=== PATIENT | male | born 1985 | race Caucasian/White ===

== ENCOUNTER 2017-01-31 13:31 | Emergency (ER) | payer OTHER ==
[~2017-01-31] VITALS: Ht 167.6 cm; Wt 64.0 kg
[2017-01-31 13:37] VITALS: BP 145/91; PULSE 116; RESP 18; O2SAT 96
--- NOTE | 2017-01-31 13:59 | ED.REPORT ---
HPI-General Illness Date of Service Jan 31, 2017 ED Provider: Onesimo Fisher MD A 31 year old male with a history of polysubstance abuse and bipolar disorder presents to the ED seeking a referral to rehab. Patient was found walking around intoxicated prior to arrival. He has reportedly been using meth for the past 5 days and drank a bottle of whiskey this morning. Patient states that he feels anxious and would like to be prescribed something to calm him down. Patient is a poor historian. Nursing Notes Stated Complaint: DETOX Chief Complaint: Substance Abuse Nursing Notes Reviewed: Yes General Time Seen by MD: 13:56 Chief Complaint Other (Seeking Rehab) Hx Obtained From: Patient Arrived By: Walk-in Sudden in Onset?: No Onset Occurred: 5 days ago Symptom Duration: 5 days Additional Notes: Anxious Pertinent Negative: Pt denies other symptoms Recent Healthcare: No recent doctor visit, No recent hospitalization Past Medical History Past Medical History Bipolar disorder Past Surgical History None reported. Smoking History Smoker Current Status UNK Social History Hx of polysubstance abuse Alcohol Use: >5 per day Drug Use: Meth, THC Other Social History: Local resident Ambulatory Status Independent Review of Systems ROS limited due to pt cooperation Full Review of Systems Psychiatric: Reports: Agitation, Anxiety Complete sys rev & neg: except as marked. Physical Exam Exam limited due to patient cooperation Vital Signs Vital Signs Date Time Temp Pulse Resp B/P Pulse Ox O2 Delivery O2 Flow Rate FiO2 01/31/17 20:52 36.0 91 18 127/78 100 Room Air 01/31/17 17:00 91 17 96 01/31/17 13:37 37.1 116 18 145/91 96 Room Air Initial VS: Reviewed General/Constitutional: Awake, Alert Behavior: Positive: Agitated Head / Eyes: Atraumatic, Normocephalic Respiratory / Chest: Atraumatic, No respiratory distress Interpretation & Diagnostics Lab Results Interpretation Result Diagram: 01/31/17 1448 01/31/17 1448 Test 01/31/17 14:45 01/31/17 14:48 Hold [place] Top Tube Received (Received) White Blood Count 11.3th/mm3 (3.8-10.1) Red Blood Count 4.43mil/mm3 (4.40-5.80) Hemoglobin 14.6g/dL (13.8-17.2) Hematocrit 40.6% (41.0-50.0) Mean Corpuscular Volume 91.6fL (81-100) Mean Corpuscular Hemoglobin 33.0pg (27.0-35.0) Mean Corpuscular Hemoglobin Concent 36.0% (32.0-37.0) Red Cell Distribution Width 12.5% (12.3-15.4) Platelet Count 259bil/L (150-400) Neutrophils (%) (Auto) 78.5% (40-74) Lymphocytes (%) (Auto) 12.5% (14-46) Monocytes (%) (Auto) 8.1% (4-12) Eosinophils (%) (Auto) 0.4% (0-5) Basophils (%) (Auto) 0.3% (0-3) Sodium Level 134mEq/L (134-144) Potassium Level 3.3mEq/L (3.5-5.2) Chloride Level 93mEq/L (97-108) Carbon Dioxide Level 13mmol/L (18-29) Blood Urea Nitrogen 27mg/dL (6-20) Creatinine 0.96mg/dL (0.76-1.27) Estimat Glomerular Filtration Rate 97mL/min (>59) Glucose Level 142mg/dL (60-99) Calcium Level 8.7mg/dL (8.5-10.1) Total Bilirubin 1.0mg/dL (0.0-1.2) Aspartate Amino Transf (AST/SGOT) 55U/L (0-50) Alanine Aminotransferase (ALT/SGPT) 127U/L (0-44) Alkaline Phosphatase 61U/L (25-150) Total Protein 7.2g/dL (6.4-8.4) Albumin 4.6g/dL (3.4-5.0) Thyroid Stimulating Hormone (TSH) 1.170uIU/mL (0.450-4.500) Alcohol, Quantitative 72mg/dL (0-10) Re-Eval/Medical Decision Med Decision/Clinical Course I assumed care of this patient at 1500 At 1640 patients labs: Borderline leukocytosis,otherwise normal Mildly elevated transaminase Mildly hypokalemic with potassium of 3.3 BUN is elevated TSH within normal limits Alcohol is 72 In summary, this is a 31-year-old male with a history of bipolar disorder and polysubstance abuse. Upon arrival he admitted to methamphetamine and alcohol abuse. He was quite agitated and aggressive towards staff and was given Haldol and Ativan. She slept throughout the duration of my shift and near the end of my shift he stated to nursing staff that he wanted to be discharged. I evaluated the patient and there was no evidence of significant trauma to the face or scalp. He did not demonstrate clinical intoxication and stated that he no longer desired to go to rehabilitation. He stated that he would go back to his mother's house. He admitted to smoking copious amounts of methamphetamine and being awake for 4-5 days as a result thereof. He denied any suicidal or homicidal ideation. He ate a burger and drink a couple glasses of water. At this time, the patient has decisional capacity. While I highly recommended that he go to detox he is able to make his own decisions at this time. He has been seen and evaluated by our psych social worker and provided with resources. Follow-up and return precautions were reviewed in detail and he is discharged in stable condition. Time of Eval: 20:56 Re-Evaluation/Progress Note: Pt rechecked. Pt states that he wants to leave. He denies SI. Discharge & Departure Shift Change Sign-Out Patient Care Transferred: Yes Discussed Complaint(s): Yes Primary Impression: Agitation Additional Impressions: Methamphetamine abuse Alcohol abuse Disposition: Home Discharge Condition All VS Reviewed: Yes Condition: Improved Additional Instructions: You were seen here today for alcohol and methamphetamine abuse. We recommend that you do not abuse meth or alcohol, these may have serious medical implications. Follow-up with the resources provided by psych social worker. Return if you have suicidal thoughts or any medical concerns. Referrals: [facility] (PCP) [facility] Care Transferred to: Dr. Fisher Care Transferred at: 16:00 EDSupervising Provider for APC: Onesimo Fisher MD Attestation Portions of this note were transcribed by Chaz Cook. Dr. Oneyda Young personally performed the history, physical exam and medical decision-making; I reviewed and confirmed the accuracy of the information in the transcribed note. Signed by: Alex Ingram, 01/31/17 1500. Portions of this note were transcribed by Barbie Quinteros. Dr. Phillip Young personally performed the history, physical exam and medical decision-making; I reviewed and confirmed the accuracy of the information in the transcribed note. Signed by: Alex Castanon, 01/31/17 and 210. copies to: [facility] Yakov Call MD Jan 31, 2017 13:59 CHAZ COOK Jan 31, 2017 14:09 BARBIE QUINTEROS Jan 31, 2017 16:39 Onesimo Fisher MD Jan 31, 2017 21:04
[2017-01-31] MEDS ORDERED: Haloperidol 5 mg/mL Inj IM ONE (14:10)
[2017-01-31 15:06] LABS: BASOPHILS % (AUTO) 0.3 % (0-3); EOSINOPHILS % (AUTO) 0.4 % (0-5); MONOCYTES % (AUTO) 8.1 % (4-12); Mean Corpuscular Volume 91.6 fL (81-100); NEUTROPHILS % (AUTO) 78.5 % (40-74); Platelet Count 259 bil/L (150-400)
[2017-01-31 17:00] VITALS: PULSE 91; RESP 17; O2SAT 96
[2017-01-31 20:52] VITALS: BP 127/78; PULSE 91; RESP 18; O2SAT 100
[2017-01-31 21:55] VITALS: BP 127/78; PULSE 91; RESP 18; O2SAT 100
== END 2017-01-31 21:27 | disposition home or self-care (01) ==
LOC: SED 13:31
DX: R45.1 Restlessness and agitation (principal); F15.220 Other stimulant dependence with intoxication, uncomplicated; F10.220 Alcohol dependence with intoxication, uncomplicated; F19.20 Other psychoactive substance dependence, uncomplicated; F31.9 Bipolar disorder, unspecified; Y90.3 Blood alcohol level of 60-79 mg/100 ml
CPT/HCPCS: 36415; 80053; 84443; 85025; 96372; 99284; G0480; J1630; J2060

== ENCOUNTER 2017-05-04 00:32 | Emergency (ER) | payer OTHER ==
[~2017-05-04] VITALS: Ht 172.7 cm; Wt 72.7 kg
[2017-05-04 00:43] VITALS: BP 162/97; PULSE 108; RESP 20; O2SAT 98
--- NOTE | 2017-05-04 01:24 | ED.REPORT ---
HPI-Psychiatric Illness Date of Service May 04, 2017 ED Provider: Dr. Josh Gutierrez M.D. The patient is a 31 year old homeless male with a history of bipolar disorder, hepatitis C, and polysubstance abuse s/p suicide attempts who presents to the ED via Police requesting a mental health evaluation. Associated symptoms per the nursing note include nella, visual hallucinations, auditory hallucinations, and insomnia. The patient reportedly went to the Police station asking to be jailed for his drug use then repeatedly called 911 and requested to be taken to the ED. The patient admits to smoking methamphetamines two days ago as well as drinking alcohol and smoking marijuana tonight. He is concerned about his alcohol and methamphetamine use as well as his homelessness. The patient requests an Antabuse prescription. He is an agitated, rambling historian. Nursing Notes Stated Complaint: MANIC EPISODE Chief Complaint: Substance Abuse Nursing Notes Reviewed: Yes Allergies: Coded Allergies: No Known Allergies (Unverified , 05/04/17) Scheduled Disulfiram (Disulfiram) 250 Mg Tablet 250 MG PO DAILY General Time Seen by MD: 01:22 Chief Complaint Other (Mental Health Evaluation) Hx Obtained From: Patient Arrived By: Walk-in Onset Occurred: 1 - 4 hours ago Context of Onset: Illicit drug use, EtOH use Symptom Duration: Since onset Severity: Current: No pain currently Severity: Maximum: No pain Pertinent Negative: Relieved by nothing Related History: Reports: Bipolar disorder, Decreased sleep, Illicit drug use, Prior suicide attempt(s) Immunizations: Unknown Recent Healthcare: No recent doctor visit Risk-Psychiatric Illness Suicide Risk Stratification Suicide Risk Factors - Adult: : Alcohol use: Previous attempt: Substance abuse RF Statements: Risk factors reviewed Past Medical History Past Medical History Bipolar disorder Hepatitis C ADHD Suicide attempt Past Surgical History Hernia repair Smoking History Smoker Current Status UNK Social History Hx of polysubstance abuse Alcohol Use: >5 per day Drug Use: Meth, THC, Xanax, Other (Heroin) Other Social History: Local resident, Homeless Ambulatory Status Independent Review of Systems Unable to Obtain ROS Patient condition, Mental status Physical Exam Physical Exam Notes: Initial Vital Signs Vital Signs (First) Date Time Temp Pulse Resp B/P Pulse Ox O2 Delivery O2 Flow Rate FiO2 05/04/17 00:43 37.0 108 20 162/97 98 Room Air Initial VS: Reviewed, Vital signs abnormal Head / Eyes: Atraumatic, Normocephalic ENT: Conjunctiva normal, No scleral icterus Neck: Supple, Full range of motion Respiratory: Breath sounds normal, Clear to auscultation, No respiratory distress General/Constitutional: Awake, Alert Abnormal Mood/Affect: Positive: Pressured speech Abnormal Thinking / Perception: Positive: Flight of ideas PSYCHIATRIC: Delusional, hyperactive, hypervigilant Cardiovascular: Regular rhythm, Heart sounds NL Heart Rate / Rhythm: Positive: Tachycardia Skin: Warm, Dry Multiple well-healed scars to forearms consistent with self-cutting and suicide attempts Multiple small abrasions to right arm that do not look self-inflicted Interpretation & Diagnostics BREATHALYZER: 134 URINE DRUG SCREEN: + Benzodiazepines + Marijuana + Methamphetamine + Opiates + Amphetamines Otherwise Negative URINE DIPSTICK: 1.02 sp gravity 6 pH +30 Protein Trace Blood Otherwise Negative Lab Results Interpretation Result Diagram: 05/04/17 0305 05/04/17 0305 Test 05/04/17 01:45 05/04/17 03:00 05/04/17 03:05 Hold Urine Received (Received) Hold [place] Top Tube Received (Received) White Blood Count 12.5th/mm3 (3.8-10.1) Red Blood Count 4.34mil/mm3 (4.40-5.80) Hemoglobin 14.3g/dL (13.8-17.2) Hematocrit 41.2% (41.0-50.0) Mean Corpuscular Volume 94.9fL (81-100) Mean Corpuscular Hemoglobin 32.9pg (27.0-35.0) Mean Corpuscular Hemoglobin Concent 34.7% (32.0-37.0) Red Cell Distribution Width 12.7% (12.3-15.4) Platelet Count 267bil/L (150-400) Neutrophils (%) (Auto) 77.9% (40-74) Lymphocytes (%) (Auto) 14.0% (14-46) Monocytes (%) (Auto) 7.6% (4-12) Eosinophils (%) (Auto) 0.1% (0-5) Basophils (%) (Auto) 0.2% (0-3) Sodium Level 143mEq/L (134-144) Potassium Level 4.2mEq/L (3.5-5.2) Chloride Level 105mEq/L (97-108) Carbon Dioxide Level 19mmol/L (18-29) Blood Urea Nitrogen 9mg/dL (6-20) Creatinine 0.77mg/dL (0.76-1.27) Estimat Glomerular Filtration Rate 125mL/min (>59) Glucose Level 111mg/dL (60-99) Calcium Level 8.8mg/dL (8.5-10.1) Total Bilirubin 0.4mg/dL (0.0-1.2) Aspartate Amino Transf (AST/SGOT) 80U/L (0-50) Alanine Aminotransferase (ALT/SGPT) 155U/L (0-44) Alkaline Phosphatase 55U/L (25-150) Total Creatine Kinase 764U/L (21-232) Total Protein 7.2g/dL (6.4-8.4) Albumin 4.7g/dL (3.4-5.0) Thyroid Stimulating Hormone (TSH) 1.580uIU/mL (0.450-4.500) Lab Results Interpretation: Data white blood count, elevated alcohol level and elevated CPK Re-Eval/Medical Decision Med Decision/Clinical Course 31-year-old male who has been using alcohol and methamphetamine. He came in quite agitated and was given Haldol, Ativan, and Benadryl with good sedation. Laboratory shows a mildly elevated white blood count and mildly elevated CPK. At his request he is being given Antabuse 250 mg daily, #10 until he can get some outpatient follow-up. 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 Source of Hx: Old records Re-Evaluation/Progress : Time of Eval: 05:00 Patient Status: Condition improved Re-Evaluation/Progress Note: Patient requests to be discharged rather than wait for Social Work evaluation. Follow-up and return to the ER instructions given. Counseled Regarding: Diagnosis, Lab results, Need for follow-up, When/why to return to ED Discharge & Departure Impression: Primary Impression: Alcohol abuse Additional Impression: Methamphetamine abuse )( Condition at Discharge: No danger to self, No danger to others Disposition: Home Discharge Condition All VS Reviewed: Yes Condition: Stable Patient Instructions: Disulfiram (By mouth) Additional Instructions: Don't use meth or alcohol. Return here if you have further problems. Disulfiram (Antabuse) 250 mg by mouth daily, #10 prescribed. Your liver has some mild inflammation so this is a low dose. Follow-up with your outpatient provider talk to them about continuing your Antabuse.. Referrals: [facility] (PCP) Scribe Attestation Portions of this note were transcribed by Cici Triana. I, Dr. Gutierrez, personally performed the history, physical exam, and medical decision-making; I reviewed and confirmed the accuracy of the information in the transcribed note. Signed by: Alex Gonzalez, 05/04/2017, 06:15 Josh Gutierrez MD May 04, 2017 01:24 CICI TRIANA May 04, 2017 01:47
[2017-05-04] MEDS ORDERED: diphenhydrAMINE 25 mg Capsule PO ONE (02:00)
[2017-05-04] MEDS ORDERED: LORazepam 2 mg Tablet PO ONE (02:00)
[2017-05-04 03:18] LABS: BASOPHILS % (AUTO) 0.2 % (0-3); EOSINOPHILS % (AUTO) 0.1 % (0-5); MONOCYTES % (AUTO) 7.6 % (4-12); Mean Corpuscular Hemoglobin 32.9 pg (27.0-35.0); Mean Corpuscular Volume 94.9 fL (81-100); NEUTROPHILS % (AUTO) 77.9 % (40-74); Platelet Count 267 bil/L (150-400)
[2017-05-04] MEDS ORDERED: DISU250T5 PO (05:51)
== END 2017-05-04 05:56 | disposition home or self-care (01) ==
LOC: SED 00:32
DX: F10.10 Alcohol abuse, uncomplicated (principal); F15.10 Other stimulant abuse, uncomplicated; F31.9 Bipolar disorder, unspecified; Z59.0 Homelessness